=== PATIENT | female | born 1980 | race Caucasian/White ===

== ENCOUNTER 2018-10-18 00:07 | Emergency (ER) | payer OTHER, SELFPAY ==
[2018-10-18 00:27] LABS: Absolute Monocytes 0.8 K/uL (0.1-1.3); Absolute Neutrophil 3.3 K/uL (1.8-8.0); Basophils % 0.5 % (0-1.3); Eosinophils % 1.7 % (0-4.4); Hematocrit 49.5 % (36.0-45.0); Lymphocytes % 32.3 % (15.3-44.8); MPV 7.7 fL (7.6-11.3); Monocytes % 12.9 % (3.3-12.3)
[2018-10-18 00:37] LABS: Barbiturates NEGATIVE (NEGATIVE); Benzodiazepines NEGATIVE (NEGATIVE); Cocaine NEGATIVE (NEGATIVE); METHAMPHETAM NEGATIVE (NEGATIVE); Methadone NEGATIVE (NEGATIVE); Opiates NEGATIVE (NEGATIVE); Phencyclidine NEGATIVE (NEGATIVE); THC Cannibis NEGATIVE (NEGATIVE)
[2018-10-18] MEDS ORDERED: NA CHLORIDE 0.9% 2,000 ML ONE (00:38)
[2018-10-18 00:41] LABS: Urine Blood NEGATIVE (NEG); Urine Glucose NEGATIVE (NEG); Urine Protein NEGATIVE (NEG); Urine Specific Gravity <1.005 (1.005-1.030)
[2018-10-18 00:53] LABS: Protime INR 1.04
[2018-10-18 01:02] LABS: CKMB Creatine Kinase MB 1.1 ng/mL (0.3-3.6)
[2018-10-18 01:22] LABS: ALT/SGPT 23 U/L (12-78); AST/SGOT 26 U/L (15-37); Albumin 3.8 g/dL (3.4-5.0); Alkaline Phosphatase 83 U/L (45-117); BUN Blood Urea Nitrogen 8 mg/dL (7-18); Bicarbonate 28 mmol/L (21-32); Bilirubin Direct 0.2 mg/dL (0-0.2); Bilirubin Total 0.7 mg/dL (0.2-1.0); Glucose Level 108 mg/dL (74-106); Potassium 3.6 mmol/L (3.5-5.1); Protein, Total 7.6 g/dL (6.4-8.2); Sodium Level 137 mmol/L (136-145); Troponin I < 0.02 ng/mL (0.0-0.045)
--- NOTE | 2018-10-18 02:15 | EDPHYS ---
Physician Documentation [facility] Name: Jovana Alejandre Age: 37 yrs Sex: Female : 1980 Arrival Date: 10/18/2018 Time: 00:12 Bed 17 Private MD: ED Physician aJcob Fleming HPI: 10/18 00:45 This 37 yrs old Female presents to ER via EMS with complaints of Altered cp Mental Status. 00:45 The patient presents with decreased responsiveness, found unconscious by roommate. cp 00:45 Onset: The symptoms/episode began/occurred just prior to arrival. Possible causes: drug cp use, benzodiazepines, buspar, alcohol. Associated signs and symptoms: Pertinent negatives: abdominal pain, chest pain, combativeness, seizure. Current symptoms: In the emergency department the patient's symptoms have improved, markedly, is more alert. Patient's baseline: Neuro: alert and fully oriented, Motor: no deficits, Ambulation: walks without assistance, Speech: normal. 00:45 Patient reports she got off work yesterday about 1800 and while at home tonight cp consumed three beers. Patient denies taking prescription meds or illegal drugs today. Historical: - Allergies: 00:23 Sulfa (Sulfonamide Antibiotics); lp1 00:23 Rocephin; lp1 00:23 Augmentin; lp1 - Home Meds: 00:23 BuSpar Oral 40 mg daily [Active]; Xanax Oral [Active]; lp1 - PMHx: 00:23 Anxiety; lp1 - PSHx: 00:23 Unable to obtain; lp1 - Immunization history:: Adult Immunizations unknown. - Social history:: Smoking status: unknown. - Ebola Screening: : No symptoms or risks identified at this time. ROS: 00:53 Eyes: Negative for injury, pain, redness, and discharge. cp 00:53 Constitutional: Negative for body aches, chills, fever, poor PO intake. 00:53 ENT: Negative for drainage from ear(s), ear pain, sore throat, difficulty swallowing, difficulty handling secretions. 00:53 Cardiovascular: Negative for chest pain, edema, palpitations. 00:53 Respiratory: Negative for cough, shortness of breath, wheezing. 00:53 Abdomen/GI: Negative for abdominal pain, vomiting, diarrhea, constipation, black/tarry stool, rectal bleeding. 00:53 Skin: Negative for cellulitis, rash. 00:53 Neuro: Negative for dizziness, headache, weakness. 00:53 Psych: Negative for auditory hallucinations, visual hallucinations, suicide gesture, suicidal ideation. Exam: 00:45 ECG was reviewed by the Attending Physician. cp 00:57 Constitutional: The patient appears in no acute distress, alert, awake, cp non-diaphoretic, non-toxic, well developed, well nourished. 00:57 Head/Face: Normocephalic, atraumatic. cp 00:57 Eyes: Periorbital structures: appear normal, Pupils: equal, round, and reactive to light and accomodation, Conjunctiva: normal, no exudate, no injection, Sclera: no appreciated abnormality, Lids and lashes: appear normal, bilaterally. 00:57 ENT: External ear(s): are unremarkable, Ear canal(s): are normal, TM's: dullness, bilaterally, Nose: is normal, Mouth: Lips: moist, Oral mucosa: moist, Posterior pharynx: is normal, airway is patent. 00:57 Neck: C-spine: vertebral tenderness, is not appreciated, crepitus, is not appreciated, ROM/movement: is normal, is supple, without pain, no range of motions limitations, no meningismus, no nuchal rigidity. 00:57 Chest/axilla: Inspection: normal, Palpation: is normal, no crepitus, no tenderness. 00:57 Cardiovascular: Rate: normal, Rhythm: regular, Pulses: Pulses are 2+ in right radial artery and left radial artery. Edema: is not appreciated, JVD: is not appreciated. 00:57 Respiratory: the patient does not display signs of respiratory distress, Respirations: normal, no use of accessory muscles, no retractions, Breath sounds: are clear throughout, no decreased breath sounds, no stridor, no wheezing. 00:57 Abdomen/GI: Inspection: abdomen appears normal, Palpation: abdomen is soft and non-tender, in all quadrants. 00:57 Back: pain, is absent, ROM is normal. 00:57 Musculoskeletal/extremity: Exam is negative for decreased range of motion, deformity, injury. 00:57 Skin: no rash present. 00:57 Neuro: Orientation: to person, place \T\ time. Mentation: able to follow commands, Motor: moves all fours, strength is normal. Vital Signs: 00:21 BP 155 / 94; Pulse 82; Resp 16; Pulse Ox 98% on R/A; Weight 72.57 kg; lp1 00:54 BP 140 / 84; Pulse 74; Resp 21; Temp 98.3(O); Pulse Ox 100% on R/A; Pain 0/10; ed1 01:30 BP 140 / 77; Pulse 71; Resp 18; Pulse Ox 98% on R/A; Pain 0/10; ed1 02:05 BP 145 / 80; Pulse 68; Resp 19; Pulse Ox 98% on R/A; Pain 0/10; ed1 MDM: 01:00 Differential Diagnosis: alcohol intoxication, overdose, seizure. cp 02:12 Data reviewed: vital signs, nurses notes, lab test result(s), EKG, I have discussed the cp patient's presentation/case with the attending Emergency Department Physician; and as a result, I will discharge patient. 02:12 Counseling: I had a detailed discussion with the patient and/or guardian regarding: the cp historical points, exam findings, and any diagnostic results supporting the discharge/admit diagnosis, lab results, to return to the emergency department if symptoms worsen or persist or if there are any questions or concerns that arise at home. Response to treatment: the patient's symptoms have markedly improved after treatment. 02:14 Patient medically screened. 10/18 00:12 Order name: Acetaminophen; Complete Time: : cp 10/18 01:33 Interpretation: Reviewed. 10/18 00:12 Order name: Basic Metabolic Panel; Complete Time: : cp 10/18 01:34 Interpretation: Normal except: GLUC 108; CA 8.4. cp 10/18 00:12 Order name: CBC with Diff; Complete Time: : cp 10/18 01:35 Interpretation: Normal except: HGB 17.3; HCT 49.5; MCV 105.4; MCH 36.8; MN% 12.9. cp 10/18 00:12 Order name: ETOH Level; Complete Time: : cp 10/18 01:34 Interpretation: Abnormal: ETOH 283. cp 10/18 00:12 Order name: Hepatic Function; Complete Time: : cp 10/18 01:35 Interpretation: Normal except: GLOB 3.8; A/G 1.0. cp 10/18 00:12 Order name: PT-INR; Complete Time: :33 cp 10/18 00:12 Order name: Ptt, Activated; Complete Time: : cp 10/18 00:12 Order name: Salicylate; Complete Time: :33 cp 10/18 00:12 Order name: Urine Drug Screen; Complete Time: :33 cp 10/18 00:14 Order name: Troponin I; Complete Time: : cp 10/18 00:20 Order name: Test, Serum; Complete Time: : lp1 10/18 00:23 Order name: CK; Complete Time: : cp 10/18 00:23 Order name: Ckmb; Complete Time: : cp 10/18 00:33 Order name: Urine Dipstick--Ancillary (enter results); Complete Time: : mw2 10/18 00:12 Order name: Urine Test (obtain specimen); Complete Time: 00:23 cp 10/18 00:12 Order name: EKG; Complete Time: 00:14 cp 10/18 00:12 Order name: EKG - Nurse/Tech; Complete Time: 00:44 cp 10/18 00:12 Order name: IV Saline Lock; Complete Time: 00:23 cp 10/18 00:12 Order name: Labs collected and sent; Complete Time: 00:23 cp 10/18 00:12 Order name: Urine Dipstick-Ancillary (obtain specimen); Complete Time: 00:23 cp 10/18 00:35 Order name: Labs - recollect needed; Complete Time: 00:42 mw2 EC:45 Rate is 65 beats/min. Rhythm is regular. SC interval is normal. QRS interval is normal. cp QT interval is normal. Interpreted by me. Reviewed by me. Administered Medications: 00:42 Drug: NS 0.9% 1000 ml Route: IV; Rate: 1 bolus; Site: left antecubital; ed1 02:17 Follow up: IV Status: Completed infusion; IV Intake: 1000ml ed1 00:42 Drug: NS 0.9% 1000 ml Route: IV; Rate: 1 bolus; Site: left antecubital; ed1 02:18 Follow up: IV Status: Order to discontinue infusion; IV Intake: 200ml ed1 Disposition: 06:11 Co-signature as Attending Physician, Jacob Fleming MD I agree with the assessment and tw4 plan of care. Disposition: 10/18/18 02:14 Discharged to Home. Impression: Alcohol use, unspecified with intoxication. - Condition is Stable. - Discharge Instructions: Alcohol Intoxication. - Medication Reconciliation Form, Thank You Letter, Antibiotic Education, Prescription Opioid Use form. - Follow up: Private Physician; When: 1 - 2 days; Reason: Recheck today's complaints. - Problem is new. - Symptoms have improved. Signatures: Dispatcher [employer] EDMS Carolin Ryan RN RN ed1 Liyah Joyner RN RN lp1 Flash Desai, PA PA Jacob Penaloza MD MD tw4 Blank Knight 2 Corrections: (The following items were deleted from the chart) 01:34 01:34 Normal except: GLUC 108. cp cp 02:18 02:14 10/18/2018 02:14 Discharged to Home. Impression: Alcohol use, unspecified with ed1 intoxication. Condition is Stable. Forms are Medication Reconciliation Form, Thank You Letter, Antibiotic Education, Prescription Opioid Use. Follow up: Private Physician; When: 1 - 2 days; Reason: Recheck today's complaints. Problem is new. Symptoms have improved. cp
--- NOTE | 2018-10-18 02:15 | ER ---
Nurse's Notes [facility] Name: Jovana Alejandre Age: 37 yrs Sex: Female : 1980 Arrival Date: 10/18/2018 Time: 00:12 Bed 17 Private MD: Diagnosis: Alcohol use, unspecified with intoxication Presentation: 10/18 00:18 Presenting complaint: EMS states: Called for patient who was unconscious; States taking lp1 home med of Buspar 40mg x1 and drinking 3 beers; Vitals WNL per EMS. Transition of care: patient was not received from another setting of care. Onset of symptoms was October 18, 2018. Risk Assessment: Do you want to hurt yourself or someone else? Patient reports no desire to harm self or others. Initial Sepsis Screen: Does the patient meet any 2 criteria? No. Patient's initial sepsis screen is negative. Does the patient have a suspected source of infection? No. Patient's initial sepsis screen is negative. Care prior to arrival: None. 00:18 Method Of Arrival: EMS: [facility] lp1 00:18 Acuity: DAVE 2 lp1 Historical: - Allergies: 00:23 Sulfa (Sulfonamide Antibiotics); lp1 00:23 Rocephin; lp1 00:23 Augmentin; lp1 - Home Meds: 00:23 BuSpar Oral 40 mg daily [Active]; Xanax Oral [Active]; lp1 - PMHx: 00:23 Anxiety; lp1 - PSHx: 00:23 Unable to obtain; lp1 - Immunization history:: Adult Immunizations unknown. - Social history:: Smoking status: unknown. - Ebola Screening: : No symptoms or risks identified at this time. Screenin:23 Fall Risk Total Plunkett Fall Scale indicates High Risk Score (45 or more points). Fall lp1 prevention measures have been instituted. Side Rails Up X 2 Placed Close to Nursing Station. 00:33 Abuse screen: Denies threats or abuse. Denies injuries from another. Nutritional ed1 screening: No deficits noted. Tuberculosis screening: No symptoms or risk factors identified. Assessment: 00:33 Reassessment: Spoke with [place] with Poison Control; Reports toxic dose of Buspar to be lp1 about 375-420mg/day; Side effects that can occur include hypotension, bradycardia, CIRCUIT WALKER depression, respiratory depression , drowsiness, N/V, serotonin changes; If patient is back to baseline mental status within 6 hours, can be medically cleared. 01:30 General: Appears in no apparent distress. Behavior is calm, cooperative, Smells of ed1 alcohol. Pain: Denies pain. Neuro: Level of Consciousness is awake, alert, obeys commands, Oriented to person, place, time, situation. Cardiovascular: Denies chest pain, Heart tones S1 S2 present. Respiratory: Airway is patent Respiratory effort is even, unlabored, Respiratory pattern is regular, symmetrical, Breath sounds are clear bilaterally. GI: No signs and/or symptoms were reported involving the gastrointestinal system. : No signs and/or symptoms were reported regarding the genitourinary system. EENT: No signs and/or symptoms were reported regarding the EENT system. Derm: Skin is intact, is healthy with good turgor, Skin is dry, Skin is normal, Skin temperature is warm. Musculoskeletal: Circulation, motion, and sensation intact. Range of motion: intact in all extremities. 02:05 Reassessment: Patient appears in no apparent distress at this time. Patient and/or ed1 family updated on plan of care and expected duration. Pain level reassessed. Patient is alert, oriented x 3, equal unlabored respirations, skin warm/dry/pink. Pt yelling from room "Yall better hurry the fuck up. I am ready to get out of here.". Vital Signs: 00:21 BP 155 / 94; Pulse 82; Resp 16; Pulse Ox 98% on R/A; Weight 72.57 kg; lp1 00:54 BP 140 / 84; Pulse 74; Resp 21; Temp 98.3(O); Pulse Ox 100% on R/A; Pain 0/10; ed1 01:30 BP 140 / 77; Pulse 71; Resp 18; Pulse Ox 98% on R/A; Pain 0/10; ed1 02:05 BP 145 / 80; Pulse 68; Resp 19; Pulse Ox 98% on R/A; Pain 0/10; ed1 ED Course: 00:12 Patient arrived in ED. cp 00:13 Flash Desai PA is PHCP. cp 00:13 Jacob Fleming MD is Attending Physician. cp 00:13 Carolin Ryan RN is Primary Nurse. ed1 00:18 Missed attempt(s): 22 gauge in right antecubital area. lp1 00:20 Triage completed. lp1 00:20 Arm band placed on left wrist. lp1 00:33 Patient has correct armband on for positive identification. Bed in low position. Call ed1 light in reach. Pt refuses gown. 00:54 Initial lab(s) drawn, by ED staff, sent to lab. Inserted saline lock: 20 gauge in left ed1 antecubital area, using aseptic technique. Blood collected. 01:[address] Scan. ed1 02:[address] Scan. ed1 02:16 No provider procedures requiring assistance completed. IV discontinued, intact, ed1 bleeding controlled, No redness/swelling at site. Pressure dressing applied. Administered Medications: 00:42 Drug: NS 0.9% 1000 ml Route: IV; Rate: 1 bolus; Site: left antecubital; ed1 02:17 Follow up: IV Status: Completed infusion; IV Intake: 1000ml ed1 00:42 Drug: NS 0.9% 1000 ml Route: IV; Rate: 1 bolus; Site: left antecubital; ed1 02:18 Follow up: IV Status: Order to discontinue infusion; IV Intake: 200ml ed1 Intake: 02:17 IV: 1000ml; Total: 1000ml. ed1 02:18 IV: 200ml; Total: 1200ml. ed1 Outcome: 02:14 Discharge ordered by . cp 02:16 Discharged to home ambulatory. ed1 02:16 Condition: good 02:16 Discharge instructions given to patient, Instructed on Pt left before discharge instructions were given Demonstrated understanding of N/A 02:18 Patient left the ED. ed1 Signatures: Carolin Ryan RN RN ed1 Liyah Joyner, RN RN lp1 Flash Desai PA PA cp
--- NOTE | 2018-10-18 07:41 | EKG ---
Test Date: 2018-10-18 Test Time: 00:37:10 Metal Reed Tuner: BARRETT MEASUREMENT RESULTS: Intervals: Rate: 65 ME: 128 QRSD: 94 QT: 432 QTc: 449 [place]: P: 65 ME: 128 QRS: 75 T: 65 INTERPRETIVE STATEMENTS: Normal sinus rhythm Normal ECG No previous ECG available for comparison Electronically Signed On 10-18-18 07:40:30 CDT by Josh Nagel
== END 2018-10-18 02:18 | disposition home or self-care (01) ==
LOC: ER 00:07
DX: F10.129 Alcohol abuse with intoxication, unspecified (principal); F41.9 Anxiety disorder, unspecified; Z88.1 Allergy status to other antibiotic agents; Z88.2 Allergy status to sulfonamides
CPT/HCPCS: 36415; 80048; 80076; 80307; 80320; 80329; 81003; 82550; 82553; 84484; 84703; 85025; 85610; 85730; 93005; 96360; 96361; 99284; J7030

== ENCOUNTER 2018-11-20 22:11 | Emergency (ER) | payer OTHER, SELFPAY ==
[2018-11-20 23:44] LABS: Barbiturates NEGATIVE (NEGATIVE); Benzodiazepines NEGATIVE (NEGATIVE); Cocaine NEGATIVE (NEGATIVE); METHAMPHETAM NEGATIVE (NEGATIVE); Methadone NEGATIVE (NEGATIVE); Opiates NEGATIVE (NEGATIVE); Phencyclidine NEGATIVE (NEGATIVE); THC Cannibis NEGATIVE (NEGATIVE)
--- NOTE | 2018-11-21 00:01 | ER ---
Nurse's Notes [facility] Name: Jovana Alejandre Age: 38 yrs Sex: Female : 1980 Arrival Date: 11/20/2018 Time: 22:13 Bed 13 Private MD: Diagnosis: Toxic effect of ethanol Presentation: 11/20 22:15 Presenting complaint: EMS states: pt has had 6 syncopal episodes today per her aa1 boyfriend. States this happens to her frequently and when it does she can't speak but she can still hear. EMS reports when they would try to move pt onto their stretcher she would wake up and tell them no but as soon as they stopped she would go back to sleep. Upon arrival to ED pt does not respond verbally. Smells of ETOH. Transition of care: patient was not received from another setting of care. Onset of symptoms was November 20, 2018. Risk Assessment: Do you want to hurt yourself or someone else? Unable to obtain. Initial Sepsis Screen: Does the patient meet any 2 criteria? No. Patient's initial sepsis screen is negative. Does the patient have a suspected source of infection? No. Patient's initial sepsis screen is negative. Care prior to arrival: Glucose check: 98. 22:15 Method Of Arrival: EMS: [facility] aa1 22:15 Acuity: DAVE 3 aa1 ENVIRONMENTAL SERVICES ASSISTANT: 22:30 LMP N/A - Hysterectomy aa1 Historical: - Allergies: 22:56 Augmentin; aa1 22:56 Rocephin; aa1 22:56 Sulfa (Sulfonamide Antibiotics); aa1 22:56 PENICILLINS; aa1 - Home Meds: 22:56 BuSpar Oral 30 mg daily [Active]; Ativan Oral [Active]; aa1 - PMHx: 22:56 Anxiety; aa1 - PSHx: 22:56 ; Hysterectomy; aa1 - Immunization history:: Last tetanus immunization: unknown. - Social history:: Smoking status: Patient uses tobacco products, smokes two packs cigarettes per day. per boyfriend, Patient uses alcohol. - Ebola Screening: : No symptoms or risks identified at this time. Screenin:15 Abuse screen: Denies threats or abuse. Denies injuries from another. Nutritional aa1 screening: No deficits noted. Tuberculosis screening: No symptoms or risk factors identified. Fall Risk Fall in past 12 months (25 points). Assessment: 22:32 General: Appears in no apparent distress. comfortable, Behavior is appropriate for age, aa1 uncooperative, Smells of alcohol. Pain: Complains of pain in left ear and head Pain currently is 8 out of 10 on a pain scale. Quality of pain is described as throbbing. Neuro: Level of Consciousness is awake, alert, obeys commands, Oriented to person, place, time, situation, Moves all extremities. Full function Gait is steady, Speech is normal, Facial symmetry appears normal, Pupils are PERRLA, Intact Reports headache Denies blurred vision dizziness, photophobia diplopia. Cardiovascular: Heart tones S1 S2 present Rhythm is regular. Respiratory: Airway is patent Respiratory effort is even, unlabored, Respiratory pattern is regular, symmetrical, Breath sounds are clear bilaterally. GI: No signs and/or symptoms were reported involving the gastrointestinal system. : No signs and/or symptoms were reported regarding the genitourinary system. EENT: Pinna small laceration noted to L ear. Derm: Skin is intact, is healthy with good turgor, Skin is pink, warm \\T\\ dry. Musculoskeletal: Circulation, motion, and sensation intact. Capillary refill < 3 seconds, Range of motion: intact in all extremities. 23:10 Reassessment: Patient appears in no apparent distress at this time. Patient and/or aa1 family updated on plan of care and expected duration. Pain level reassessed. Patient is alert, oriented x 3, equal unlabored respirations, skin warm/dry/pink. Awaiting CT results. Pt states, "I'm fine, there's nothing wrong with me. I'm ready to get the fuck outta here.". 11/21 00:01 Reassessment: Patient appears in no apparent distress at this time. Patient is alert, aa1 oriented x 3, equal unlabored respirations, skin warm/dry/pink. Discussed d/c \\T\\ f/u instructions with pt. Pt given discharge paper work and states, "oh alcohol?" and throws discharge papers at nurse. Then picks up papers again and states, "Oh and opioids too? That shits not right." Explained to pt that the opioid use hand out is just an education sheet on opioid drugs and is not stating that she is using opioid medications." Pt states, "just get me the fuck outta here." Pt amb to lobby with steady gait accompanied with significant other and 2 friends. Patient states feeling better. Vital Signs: 11/20 22:15 BP 146 / 102; Pulse 69; Resp 16; Temp 97.7; Pulse Ox 97% on R/A; Weight 61.23 kg; aa1 Height 5 ft. 8 in. (172.72 cm); Pain 8/10; 23:10 aa1 11/21 00:01 aa1 11/20 22:15 Body Mass Index 20.53 (61.23 kg, 172.72 cm) aa1 11/20 23:10 Pt refuses vital signs aa1 11/21 00:01 refuses vital signs for discharge aa1 ED Course: 11/20 22:05 Urine collected: clean catch specimen. bb 22:13 Patient arrived in ED. am2 22:15 Patient has correct armband on for positive identification. Placed in gown. Bed in low aa1 position. Call light in reach. Side rails up X2. Pulse ox on. NIBP on. Warm blanket given. 22:15 Arm band placed on left wrist. aa1 22:23 Yves Dumont MD is Attending Physician. gs 22:[address] vr 22:41 Nannette Mhoan, AMNPREET is Primary Nurse. aa1 22:50 CT completed. Patient tolerated procedure well. Patient moved back from CT. vm2 22:53 Triage completed. aa1 22:54 CT Head Brain wo Cont In Process Unspecified. EDMS 23:07 Missed attempt(s): 20 gauge in right antecubital area. Bleeding controlled, band aid bb applied, catheter tip intact. 23:07 Initial lab(s) drawn, by me, sent to lab. bb 11/21 00:01 No provider procedures requiring assistance completed. Patient did not have IV access aa1 during this emergency room visit. Administered Medications: 11/20 23:11 Not Given (Patient Refused): NS 0.9% 1000 ml IV at 1 bolus Per protocol; 1000 mL bolus aa1 Outcome: 11/21 00:00 Discharge ordered by . gs 00:01 Discharged to home ambulatory, with friend, with significant other. aa1 00:01 Condition: good 00:01 Discharge instructions given to patient, Instructed on discharge instructions, follow up and referral plans. Demonstrated understanding of instructions, follow-up care. 00:04 Patient left the ED. aa1 Signatures: Dispatcher [employer] EDNannette Corrales RN RN aa1 Kinjal Morris RN RN bb Davis, Victoria vr Moreno, Amanda am2 McGuire, Victoria vm2 Starr, Gregory, MD MD gs Corrections: (The following items were deleted from the chart) 11/20 23:09 22:05 Initial lab(s) drawn, by me, sent to lab. jono de la cruz
--- NOTE | 2018-11-21 00:01 | EDPHYS ---
Physician Documentation [facility] Name: Jovana Alejandre Age: 38 yrs Sex: Female : 1980 Arrival Date: 11/20/2018 Time: 22:13 Bed 13 Private MD: ED Physician Yves Dumont HPI: 11/21 01:35 This 38 yrs old Female presents to ER via EMS with complaints of ams,etoh gs intoxication. 01:35 Onset: The symptoms/episode began/occurred today. Associated signs and symptoms: gs Pertinent positives: confusion, Pertinent negatives: agitation. Current symptoms: In the emergency department the patient's symptoms have improved, moderately. The patient has experienced similar episodes in the past, several times. 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 - Social history:: Smoking status: Patient uses tobacco products, smokes two packs cigarettes per day. per boyfriend, Patient uses alcohol. - Ebola Screening: : No symptoms or risks identified at this time. ROS: 11/21 01:35 All other systems are negative. gs Exam: 01:35 Head/Face: Normocephalic, atraumatic. Eyes: Pupils equal round and reactive to light, gs extra-ocular motions intact. Lids and lashes normal. Conjunctiva and sclera are non-icteric and not injected. Cornea within normal limits. Periorbital areas with no swelling, redness, or edema. ENT: Nares patent. No nasal discharge, no septal abnormalities noted. Tympanic membranes are normal and external auditory canals are clear. Oropharynx with no redness, swelling, or masses, exudates, or evidence of obstruction, uvula midline. Mucous membranes moist. Neck: Trachea midline, no thyromegaly or masses palpated, and no cervical lymphadenopathy. Supple, full range of motion without nuchal rigidity, or vertebral point tenderness. No Meningismus. Chest/axilla: Normal chest wall appearance and motion. Nontender with no deformity. No lesions are appreciated. Cardiovascular: Regular rate and rhythm with a normal S1 and S2. No gallops, murmurs, or rubs. Normal PMI, no JVD. No pulse deficits. Respiratory: Lungs have equal breath sounds bilaterally, clear to auscultation and percussion. No rales, rhonchi or wheezes noted. No increased work of breathing, no retractions or nasal flaring. Abdomen/GI: Soft, non-tender, with normal bowel sounds. No distension or tympany. No guarding or rebound. No evidence of tenderness throughout. Back: No spinal tenderness. No costovertebral tenderness. Full range of motion. Skin: Warm, dry with normal turgor. Normal color with no rashes, no lesions, and no evidence of cellulitis. MS/ Extremity: Pulses equal, no cyanosis. Neurovascular intact. Full, normal range of motion. Neuro: Awake and alert, GCS 15, oriented to person, place, time, and situation. Cranial nerves II-XII grossly intact. Motor strength 5/5 in all extremities. Sensory grossly intact. Cerebellar exam normal. Normal gait. 01:35 Constitutional: The patient appears awake, lethargic. Vital Signs: 11/20 22:15 BP 146 / 102; Pulse 69; Resp 16; Temp 97.7; Pulse Ox 97% on R/A; Weight 61.23 kg; aa1 Height 5 ft. 8 in. (172.72 cm); Pain 8/10; 23:10 aa1 11/21 00:01 aa 11/20 22:15 Body Mass Index 20.53 (61.23 kg, 172.72 cm) aa 11/20 23:10 Pt refuses vital signs [facility] 11/21 00:01 refuses vital signs for discharge aa1 MDM: 11/20 22:24 Patient medically screened. gs 11/21 01:35 Differential Diagnosis: alcohol intoxication, hypoglycemia, intracranial bleed, gs overdose. Data reviewed: vital signs, nurses notes. Response to treatment: the patient's symptoms have markedly improved after treatment, the patient's symptoms have resolved after treatment, the patient's condition has returned to base line, walking without difficulty wants to go home. 11/20 22:24 Order name: Acetaminophen 11/20 22:24 Order name: Basic Metabolic Panel 11/20 22:24 Order name: CBC with Diff 11/20 22:24 Order name: Urine Drug Screen; Complete Time: 23:59 11/20 22:24 Order name: EKG; Complete Time: 22:24 11/20 22:24 Order name: CT Head Brain wo Cont 11/20 22:24 Order name: Urine Test (obtain specimen); Complete Time: 23:07 11/20 22:24 Order name: EKG - Nurse/Tech; Complete Time: 23:07 11/20 22:24 Order name: Labs collected and sent; Complete Time: 23: 11/20 22:24 Order name: Urine Dipstick-Ancillary (obtain specimen); Complete Time: 22:49 Administered Medications: 11/20 23:11 Not Given (Patient Refused): NS 0.9% 1000 ml IV at 1 bolus Per protocol; 1000 mL bolus aa1 Disposition: 11/21/18 00:00 Discharged to Home. Impression: Toxic effect of ethanol. - Condition is Stable. - Discharge Instructions: Alcohol Intoxication. - Medication Reconciliation Form, Thank You Letter, Antibiotic Education, Prescription Opioid Use form. - Follow up: Private Physician; When: 2 - 3 days; Reason: Re-evaluation by your physician. Signatures: Dispatcher [employer] EDNannette Corrales RN RN aa1 Yves Dumont MD MD Corrections: (The following items were deleted from the chart) 23:11 22:24 IV Saline Lock ordered. aa1 11/21 00:04 00:00 11/21/2018 00:00 Discharged to Home. Impression: Toxic effect of ethanol. aa1 Condition is Stable. Forms are Medication Reconciliation Form, Thank You Letter, Antibiotic Education, Prescription Opioid Use. Follow up: Private Physician; When: 2 - 3 days; Reason: Re-evaluation by your physician.
--- NOTE | 2018-11-21 07:49 | EKG ---
Test Date: 2018-11-20 Test Time: 23:04:11 Stitching Machine Feeder Or Offbearer: NIYA MEASUREMENT RESULTS: Intervals: Rate: 64 CO: 134 QRSD: 96 QT: 430 QTc: 443 [place]: P: 42 CO: 134 QRS: 77 T: 61 INTERPRETIVE STATEMENTS: Normal sinus rhythm Normal ECG Compared to ECG 10/18/2018 00:37:10 No significant changes Electronically Signed On 11-21-18 07:48:19 CDT by Josh Nagel
--- NOTE | 2018-11-21 10:14 | RAD REPORT ---
EXAM DESCRIPTION: Head Brain Wo Cont CLINICAL HISTORY: CONFUSED COMPARISON: None Available. TECHNIQUE: Multiple helical axial tomographic images were obtained of the head without intravenous c ontrast. Coronal and sagittal reformatted images were obtained. This exam was performed according to our departmental dose-optimization program, which includes automated exposure control, adjustment of the mA and/or kV according to patient size and/or use of iterative reconstruction technique. FINDINGS: There is no acute intracranial hemorrhage. No mass. No midline shift. No ventriculomegaly. Saeed-white matter differentiation is maintained. Paranasal sinuses are clear. Mastoid air cells and middle ear spaces are clear. Orbits and orbital co ntents are unremarkable. Osseous structures are unremarkable. There is an area of mild right parietal scalp swelling. IMPRESSION: No acute intracranial process. Electronically signed by: Josh Valentine MD 11/20/2018 11:00 PM CDT Due to temporary technical issues with the PACS/Fluency reporting system, reports are being signed by the in house radiologist as a courtesy to ensure prompt reporting. The interpreting radiologist is f ully responsible for the content of the report.
== END 2018-11-21 00:04 | disposition home or self-care (01) ==
LOC: ER 22:11
DX: T51.0X1A Toxic effect of ethanol, accidental (unintentional), initial encounter (principal); F41.9 Anxiety disorder, unspecified; Z88.1 Allergy status to other antibiotic agents; Z88.0 Allergy status to penicillin; Z88.2 Allergy status to sulfonamides; F17.210 Nicotine dependence, cigarettes, uncomplicated
CPT/HCPCS: 70450; 80307; 93005; 99284

== ENCOUNTER 2018-12-25 21:14 | Emergency (ER) | payer OTHER, SELFPAY ==
[2018-12-25] MEDS ORDERED: LIDOCAINE 1% W/EPI 1:100,000 MDV 50 ML VIAL ONE (22:05)
--- NOTE | 2018-12-25 22:07 | ER ---
Nurse's Notes [facility] Name: Jovana Alejandre Age: 38 yrs Sex: Female : 1980 Arrival Date: 12/25/2018 Time: 21:18 Bed 8 Private MD: Diagnosis: Laceration without foreign body, right lower leg Presentation: 12/25 20:30 Presenting complaint: Significant other states: playing sharp knife in the kitchen and rr5 accidentally fell down on her leg. 20:30 Transition of care: patient was not received from another setting of care. Complicating rr5 Factors: There are no complicating factors for this patient. Onset of symptoms was December 25, 2018 at 21:00. Risk Assessment: Do you want to hurt yourself or someone else? Patient reports no desire to harm self or others. Initial Sepsis Screen: Does the patient meet any 2 criteria? No. Patient's initial sepsis screen is negative. Does the patient have a suspected source of infection? No. Patient's initial sepsis screen is negative. Note patient is drunk. positive ETOH. as verbalized by computed tomography technician drank 10 cans of beer. Care prior to arrival: None. Mechanism of Injury: Laceration sustained at home, while playing, as per computed tomography technician stated from knife, Injury was accidental. 20:30 Method Of Arrival: Wheelchair rr5 20:30 Acuity: DAVE 3 rr5 Triage Assessment: 21:30 General: Appears in no apparent distress. comfortable, Behavior is calm, cooperative, rr5 appropriate for age. Injury Description: Laceration sustained to right lower leg is clean, 2.6 to 7.5 cm long, was sustained less than 30 minutes ago. is bleeding a small amount. 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 - Social history:: Smoking status: Patient uses tobacco products, smokes one pack cigarettes per day. Patient uses alcohol, Patient/guardian denies using street drugs. - Ebola Screening: : Patient negative for fever greater than or equal to 101.5 degrees Fahrenheit, and additional compatible Ebola Virus Disease symptoms Patient denies exposure to infectious person Patient denies travel to an Ebola-affected area in the 21 days before illness onset. Screenin:30 Abuse screen: Denies threats or abuse. Denies injuries from another. Nutritional rr5 screening: No deficits noted. Tuberculosis screening: No symptoms or risk factors identified. Fall Risk Gait- Normal/Bed Rest/Wheelchair (0 pts) Total Plunkett Fall Scale indicates No Risk (0-24 pts). Assessment: 21:30 General: Appears in no apparent distress. comfortable, Behavior is calm, cooperative, rr5 appropriate for age, Smells of alcohol. Pain: Denies pain. Neuro: Level of Consciousness is awake, alert, obeys commands, Oriented to person, place, time, situation, Appropriate for age. 21:30 Cardiovascular: Capillary refill < 3 seconds Patient's skin is warm and dry. rr5 Respiratory: Airway is patent Respiratory effort is even, unlabored, Respiratory pattern is regular, symmetrical. GI: No signs and/or symptoms were reported involving the gastrointestinal system. : No signs and/or symptoms were reported regarding the genitourinary system. EENT: No signs and/or symptoms were reported regarding the EENT system. Derm: Skin is intact, Skin temperature is warm Wound noted right lower leg. Musculoskeletal: Capillary refill < 3 seconds, Range of motion: intact in all extremities. Injury Description: Laceration sustained to right lower leg is clean, 0.5 to 2.5 cm long, not bleeding, was sustained less than 30 minutes ago. is bleeding a small amount. 21:55 Reassessment: Patient appears in no apparent distress at this time. Patient is alert, rr5 oriented x 3, equal unlabored respirations, skin warm/dry/pink. stapling done by dr. ware aseptically. wound dressing done. 22:15 Reassessment: Patient appears in no apparent distress at this time. Patient is alert, rr5 oriented x 3, equal unlabored respirations, skin warm/dry/pink. discharge instruction given and explained without complaints made. Patient states symptoms have improved. Vital Signs: 21:30 BP 144 / 98; Pulse 81; Resp 17; Temp 97.4; Pulse Ox 99% ; rr5 21:30 Weight 58.97 kg; Height 5 ft. 7 in. (170.18 cm); rr5 22:10 BP 132 / 75; Pulse 80; Resp 17; Pulse Ox 99% on R/A; Pain 0/10; rr5 21:30 Body Mass Index 20.36 (58.97 kg, 170.18 cm) rr5 ED Course: 21:18 Patient arrived in ED. 21:22 Yves Ware MD is Attending Physician. 21:30 Fan Moya, RN is Primary Nurse. rr5 21:30 Patient has correct armband on for positive identification. Bed in low position. Call rr5 light in reach. Adult w/ patient. 21:35 Arm band placed on. rr5 21:37 Triage completed. rr5 21:55 Assist provider with laceration repair on right lower leg that was between 2.6 to 7.5 rr5 cm using ron. Set up tray. Performed by Yves Ware MD Dressed with 4X4s, Kerlix, Neosporin, Patient tolerated well. 22:15 Patient did not have IV access during this emergency room visit. rr5 Administered Medications: 21:55 Drug: Lidocaine-Epinephrine -1%: (1:100,000) 5 ml {Note: given by dr. ware.} Volume: rr5 20 ml; Route: Infiltration; 22:17 Follow up: Response: No adverse reaction rr5 Outcome: 22:05 Discharge ordered by . 22:15 Discharged to home ambulatory, with family. rr5 22:15 Condition: stable 22:15 Discharge instructions given to patient, family, Instructed on discharge instructions, follow up and referral plans. Demonstrated understanding of instructions, follow-up care. 22:18 Patient left the ED. rr5 Signatures: Italia Leary Yves Ware MD MD Fan Moya, RN RN rr5
--- NOTE | 2018-12-25 22:07 | EDPHYS ---
Physician Documentation [facility] Name: Jovana Alejandre Age: 38 yrs Sex: Female : 1980 Arrival Date: 12/25/2018 Time: 21:18 Bed 8 Private MD: ED Physician Yves Ware HPI: 12/25 22:25 This 38 yrs old Female presents to ER via Wheelchair with complaints of gs Laceration To Leg. 22:25 The patient has a laceration related to: cooking, from a knife, occurred at home. The gs laceration(s) is(are) located on the right diaz. Onset: The symptoms/episode began/occurred acutely, just prior to arrival. Associated signs and symptoms: Pertinent negatives: deformity, heavy bleeding, numbness distal to injury. The patient has not experienced similar symptoms in the past. The patient has not recently seen a physician. 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 - Social history:: Smoking status: Patient uses tobacco products, smokes one pack cigarettes per day. Patient uses alcohol, Patient/guardian denies using street drugs. - Ebola Screening: : Patient negative for fever greater than or equal to 101.5 degrees Fahrenheit, and additional compatible Ebola Virus Disease symptoms Patient denies exposure to infectious person Patient denies travel to an Ebola-affected area in the 21 days before illness onset. ROS: 22:25 All other systems are negative. gs Exam: 22:25 ENT: Nares patent. No nasal discharge, no septal abnormalities noted. Tympanic gs membranes are normal and external auditory canals are clear. Oropharynx with no redness, swelling, or masses, exudates, or evidence of obstruction, uvula midline. Mucous membranes moist. Cardiovascular: Regular rate and rhythm with a normal S1 and S2. No gallops, murmurs, or rubs. Normal PMI, no JVD. No pulse deficits. Respiratory: Lungs have equal breath sounds bilaterally, clear to auscultation and percussion. No rales, rhonchi or wheezes noted. No increased work of breathing, no retractions or nasal flaring. MS/ Extremity: Pulses equal, no cyanosis. Neurovascular intact. Full, normal range of motion. Neuro: Awake and alert, GCS 15, oriented to person, place, time, and situation. Cranial nerves II-XII grossly intact. Motor strength 5/5 in all extremities. Sensory grossly intact. Cerebellar exam normal. Normal gait. 22:25 Constitutional: The patient appears in no acute distress, alert, awake. 22:25 Skin: injury, laceration(s), the wound is approximately 8 cm(s), with a depth of 1 cm(s), of the right leg. Vital Signs: 21:30 BP 144 / 98; Pulse 81; Resp 17; Temp 97.4; Pulse Ox 99% ; rr5 21:30 Weight 58.97 kg; Height 5 ft. 7 in. (170.18 cm); rr5 22:10 BP 132 / 75; Pulse 80; Resp 17; Pulse Ox 99% on R/A; Pain 0/10; rr5 21:30 Body Mass Index 20.36 (58.97 kg, 170.18 cm) rr5 Laceration: 22:25 Wound Repair of 8cm ( 3.1in ) subcutaneous laceration to right leg. Distal gs neuro/vascular/tendon intact. Anesthesia: Local anesthetic administered with 3 mls of 1% lidocaine w/ Epi. Wound prep: Simple cleansing, Wound irrigation by me. Skin closed with 7 1-0 Gavin using staple gun. MDM: 21:28 Patient medically screened. 22:25 Data reviewed: vital signs, nurses notes. Counseling: I had a detailed discussion with gs the patient and/or guardian regarding: the historical points, exam findings, and any diagnostic results supporting the discharge/admit diagnosis, the need for outpatient follow up. 12/25 21:51 Order name: Dressing - Wound; Complete Time: 22:15 rr5 12/25 21:51 Order name: Gloves, Sterile; Complete Time: 22:16 rr5 12/25 21:51 Order name: Setup Suture Tray; Complete Time: 22:16 rr5 Administered Medications: 21:55 Drug: Lidocaine-Epinephrine -1%: (1:100,000) 5 ml {Note: given by dr. ware.} Volume: rr5 20 ml; Route: Infiltration; 22:17 Follow up: Response: No adverse reaction rr5 Disposition: 12/25/18 22:05 Discharged to Home. Impression: Laceration without foreign body, right lower leg. - Condition is Stable. - Discharge Instructions: Laceration Care, Adult. - Medication Reconciliation Form, Thank You Letter, Antibiotic Education, Prescription Opioid Use, Work release form form. - Follow up: Private Physician; When: 7 - 10 days; Reason: Staple/Suture removal. Signatures: Yves Ware MD MD gs Roque, Raymond RN RN rr5 Corrections: (The following items were deleted from the chart) 22:18 22:05 12/25/2018 22:05 Discharged to Home. Impression: Laceration without foreign body, rr5 right lower leg. Condition is Stable. Forms are Medication Reconciliation Form, Thank You Letter, Antibiotic Education, Prescription Opioid Use. Follow up: Private Physician; When: 7 - 10 days; Reason: Staple/Suture removal. gs
== END 2018-12-25 22:18 | disposition home or self-care (01) ==
LOC: ER 21:14
PROC: 0JQN0ZZ Repair Right Lower Leg Subcutaneous Tissue and Fascia, Open Approach (ICD-10-PCS; principal; 2018-12-25)
DX: S81.811A Laceration without foreign body, right lower leg, initial encounter (principal); W26.0XXA Contact with knife, initial encounter; Y93.G3 Activity, cooking and baking; Y92.000 Kitchen of unspecified non-institutional (private) residence as the place of occurrence of the external cause; F17.210 Nicotine dependence, cigarettes, uncomplicated; F41.9 Anxiety disorder, unspecified; Z88.0 Allergy status to penicillin; Z88.1 Allergy status to other antibiotic agents; Z88.2 Allergy status to sulfonamides; Z98.82 Breast implant status
CPT/HCPCS: 99283